=== PATIENT | female | born 1980 | race American Indian/Alaskan Native ===

== ENCOUNTER 2019-11-16 21:23 | Observation (INO) | payer OTHER ==
--- NOTE | 2019-11-16 22:37 | Emergency Department Report ---
Blank Doc - Documentation Documentation: 39-year-old female that presents with dizziness, weakness, and bilateral leg w eakness. This initial assessment/diagnostic orders/clinical plan/treatment(s) is/are subject to change based on patient's health status, clinical progression and re- assessment by fellow clinical providers in the ED. Further treatment and workup at subsequent clinical providers discretion. Patient/guardians urged not to elope from the ED as their condition may be serious if not clinically assessed and managed. Initial orders include: 1- Patient sent to [facility] for further evaluation and treatment 2- labs 3- EKG
[2019-11-16] MEDS ORDERED: SODIUM CHLORIDE 0.9% 1000 ML 1,000 ML IV ONE (23:20)
--- NOTE | 2019-11-16 23:20 | Emergency Department Report ---
ED Dizziness HPI - General Chief Complaint: Dizziness Stated Complaint: DIZZINESS,WEAKNESS,FALLING Time Seen by Provider: 11/16/19 22:36 Source: patient Mode of arrival: Ambulatory Limitations: No Limitations - History of Present Illness Initial Comments: Patient is a 39-year-old female that presents emergency room with complaints of dizziness, weakness and fallen today. Patient states that her gait is worsening. Patient states that she usually does not fall but today she is having so much left leg weakness that she is falling. Patient states her only past medical history of lupus and peripheral neuropathy. Patient states her dizziness and weakness are worse with movement and walking and her dizziness and weakness are better with rest and lying flat. Patient states she is currently on her cycle. Patient states she is having generalized pain which is consistent with her lupus pain in is a 10 out of 10. MD Complaint: dizziness, lightheadedness, difficulty walking -: Sudden Timing: sudden onset Description: "room spinning", lightheadedness, off-balance, difficulty walking History of Same: No History of Trauma: No Severity: severe Improves With: rest Worsens With: movement, position, exertion Associated Symptoms: weakness. denies: chest pain, confusion, cough, diaphoresis, fever/chills, loss of appetite, malaise, rash, seizure, shortness of breath, syncope - Related Data Previous Rx's Medication Instructions Recorded Last Taken Type Permethrin 5% [Acticin 5% CREAM] 1 applicatio TP ONCE #1 tube 07/26/14 Unknown Rx Allergies Allergy/AdvReac Type Severity Reaction Status Date / Time Penicillins Allergy Hives Verified 04/29/14 22:06 ED Review of Systems ROS: Stated complaint: DIZZINESS,WEAKNESS,FALLING Other details as noted in HPI Constitutional: weakness. denies: chills, fever Eyes: denies: eye pain, eye discharge, vision change ENT: denies: ear pain, throat pain Respiratory: denies: cough, shortness of breath, wheezing Cardiovascular: denies: chest pain, palpitations Endocrine: no symptoms reported Gastrointestinal: denies: abdominal pain, nausea, diarrhea Genitourinary: denies: urgency, dysuria, discharge Musculoskeletal: denies: back pain, joint swelling, arthralgia Skin: denies: rash, lesions Neurological: weakness, abnormal gait. denies: headache, paresthesias Psychiatric: denies: anxiety, depression Hematological/Lymphatic: denies: easy bleeding, easy bruising ED Past Medical Hx - Past Medical History Previous Medical History?: Yes Hx Hypertension: No Hx CVA: No Additional medical history: LUPUS - Surgical History Past Surgical History?: Yes Additional Surgical History: c section - Family History Family history: no significant - Social History Smoking Status: Current Every Day Smoker Substance Use Type: None - Medications Home Medications: Home Medications Medication Instructions Recorded Confirmed Last Taken Type Permethrin 5% [Acticin 5% CREAM] 1 applicatio TP ONCE #1 tube 07/26/14 Unknown Rx ED Physical Exam - General Limitations: No Limitations General appearance: alert, in no apparent distress - Head Head exam: Present: atraumatic, normocephalic - Eye Eye exam: Present: normal appearance - ENT ENT exam: Present: mucous membranes moist - Neck Neck exam: Present: normal inspection - Respiratory Respiratory exam: Present: normal lung sounds bilaterally. Absent: respiratory distress, wheezes, rales - Cardiovascular Cardiovascular Exam: Present: regular rate, normal rhythm. Absent: systolic murmur, diastolic murmur, rubs, gallop - GI/Abdominal GI/Abdominal exam: Present: soft, normal bowel sounds - Extremities Exam Extremities exam: Present: normal inspection - Back Exam Back exam: Present: normal inspection - Neurological Exam Neurological exam: Present: alert, oriented X3, CN II-XII intact, abnormal gait (patient has a left foot drop with ambulation) - Psychiatric Psychiatric exam: Present: normal affect, normal mood - Skin Skin exam: Present: warm, dry, intact, normal color. Absent: rash ED Course Vital Signs 11/16/19 11/17/19 11/17/19 21:25 01:20 03:05 Temperature 98.1 F Pulse Rate 75 Respiratory 18 Rate Blood Pressure 122/87 134/87 O2 Sat by Pulse 99 100 100 Oximetry 11/17/19 11/17/19 03:15 03:25 Temperature Pulse Rate 64 Respiratory 18 Rate Blood Pressure 135/82 O2 Sat by Pulse 100 Oximetry - Reevaluation(s) Reevaluation #1: I discussed all results with patient. I discussed plan of care with patient. Patient agrees with plan of care and admission. Patient will be admitted to the hospitalist service. 11/17/19 03:27 - Consultations Consultation #1: Hospitalist consult for admission. Hospitalist admit patient. 11/17/19 03:27 ED Medical Decision Making - Lab Data Result diagrams: 11/16/19 23:04 11/16/19 23:04 - EKG Data -: EKG Interpreted by Me EKG shows normal: sinus rhythm, axis, intervals, QRS complexes, ST-T waves Rate: normal - Radiology Data Radiology results: report reviewed Head CT without intravenous contrast INDICATION: Weakness and dizziness starting today COMPARISON: None FINDINGS: The ventricles are normal in size and position. No hemorrhage or extra-axial fluid collection. No edema or mass effect. No focal infarct seen. Portions of the sinuses visualized are clear. No skull fracture identified. There is periventricular white matter low- attenuation involving the occipital lobes which is somewhat unusual for patient of this young age and demyelinating process would need to be considered. IMPRESSION: Periventricular white matter low-attenuation. No acute abnormality. Automated exposure control was utilized to diminish radiation dose CT lumbar spine with contrast INDICATION: Left leg weakness and foot drop today FINDINGS: The vertebral body heights and disc spaces are intact. There is no fracture or spondylolisthesis. No spurring or facet arthropathy. There is no epidural abscess or fluid collection. There is no focal disc herniation or central spinal stenosis. No bone lesion identified. No foraminal stenosis seen. Polycystic kidneys are present. IMPRESSION: No significant abnormality of the lumbar spine seen. Polycystic kidneys are noted. All CT scans at this location are performed using CT dose reduction for ALARA by means of automated exposure control - Medical Decision Making Patient is a 39-year-old female up since emergency room with complaints of left leg weakness and frequent falls and dizziness. I ambulated the patient in the ER and the patient's gait is consistent with a left foot drop. Patient's labs unremarkable except for a UTI on UA. Patient had a head CT which was negative for acute findings. Patient's lumbar CT done and is negative for acute findings. Patient admitted to the hospitalist service for further violation treatment and a neurologic workup and neurology consult. - Differential Diagnosis left leg weakness, left foot weakness, dizziness, Critical Care Time: Yes Critical care time in (mins) excluding proc time.: 35 Critical care attestation.: If time is entered above; I have spent that time in minutes in the direct care of this critically ill patient, excluding procedure time. Critical Care Time: 35 minutes ED Disposition Clinical Impression: Foot drop, left, Weakness, Falls frequently, Dizziness, Weakness of left leg UTI (urinary tract infection) Qualifiers: Urinary tract infection type: acute cystitis Hematuria presence: with hematuria Qualified Code(s): N30.01 - Acute cystitis with hematuria Disposition: OP ADMIT IP TO THIS HOSP Is pt being admited?: Yes Does the pt Need Aspirin: No Condition: Critical Referrals: PRIMARY CARE, [Primary Care Provider] - 3-5 Days Time of Disposition: 03:28 - Assessment Assessment Interval: Baseline - Level of Consciousness 1a. Level of Consciousness: alert/keenly responsive - LOC Questions 1b. LOC Questions: answers both correctly - LOC Command 1c. LOC Commands: performs tasks correctly - Best Gaze 2. Best Gaze: normal - Visual 3. Visual: no visual loss - Facial Palsy 4. Facial Palsy: normal symmetrical movement - Motor Arm 5a. Motor Arm Left: no drift 5b. Motor Arm Right: no drift - Motor Leg 6a. Motor Leg Left: no drift 6b. Motor Leg Right: no drift - Limb Ataxia 7. Limb Ataxia: absent - Sensory 8. Sensory: normal - Best Language 9. Best Language: no aphasia - Dysarthria 10. Dysarthria: normal - Extinction and Inattention 11. Extinction/Inattention: no abnormality - Scoring Total Score: 0 Stroke Severity: No Stroke Symptoms
[2019-11-16 23:40] LABS: Hematocrit 31.5 % (30.3-42.9); Hemoglobin 10.3 gm/dl (10.1-14.3); Mean Corpuscular HGB Conc 33 % (30-34); Mean Corpuscular Volume 84 fl (79-97); Platelet Count 212 K/mm3 (140-440); Red Blood Count 3.77 M/mm3 (3.65-5.03); Red Cell Distribution Width 16.1 % (13.2-15.2)
[2019-11-17 00:04] LABS: Alanine Aminotransferase 8 units/L (7-56); Albumin 4.1 g/dL (3.9-5); BUN/Creatinine Ratio 19; Blood Urea Nitrogen 13 mg/dL (7-17); Calcium 9.3 mg/dL (8.4-10.2); Hemolysis Index 0
--- NOTE | 2019-11-17 02:11 | Cat Scan Report ---
Head CT without intravenous contrast INDICATION: Weakness and dizziness starting today COMPARISON: None FINDINGS: The ventricles are normal in size and position. No hemorrhage or extra-axial fluid collecti on. No edema or mass effect. No focal infarct seen. Portions of the sinuses visualized are clear. No skull fracture identified. There is periventricular white matter low-attenuation involving the occipi jackie lobes which is somewhat unusual for patient of this young age and demyelinating process would nee d to be considered. IMPRESSION: Periventricular white matter low-attenuation. No acute abnormality. Automated exposure control was utilized to diminish radiation dose Signer Name: Dusty Jay MD Signed: 11/17/2019 2:07 AM Workstation Name: [id number]
--- NOTE | 2019-11-17 02:18 | Cat Scan Report ---
CT lumbar spine with contrast INDICATION: Left leg weakness and foot drop today FINDINGS: The vertebral body heights and disc spaces are intact. There is no fracture or spondylolist hesis. No spurring or facet arthropathy. There is no epidural abscess or fluid collection. There is n o focal disc herniation or central spinal stenosis. No bone lesion identified. No foraminal stenosis seen. Polycystic kidneys are present. IMPRESSION: No significant abnormality of the lumbar spine seen. Polycystic kidneys are noted. All CT scans at this location are performed using CT dose reduction for ALARA by means of automated e xposure control Signer Name: Dusty Jay MD Signed: 11/17/2019 2:14 AM Workstation Name: [id number]
[2019-11-17 02:31] LABS: Anisocytosis 1+; Total Cells Counted 100
[2019-11-17 02:32] LABS: Platelet Estimate Consistent w Auto; Tear Drop Cells Rare
[2019-11-17] MEDS ORDERED: ONDANSETRON 4 MG/2 ML INJ IV PRN (03:51)
[2019-11-17 04:11] LABS: Bilirubin,Urine NEG (Negative); Blood,Urine MOD (Negative); Color,Urine Red (Yellow); Urobilinogen,Urine < 2.0 mg/dL (<2.0)
[2019-11-17 04:13] LABS: RBC,Urine > 182.0 /HPF (0.0-6.0); WBC,Urine > 182.0 /HPF (0.0-6.0)
[2019-11-17] MEDS ORDERED: predniSONE 20 MG TAB PO ONE (04:14)
--- NOTE | 2019-11-17 04:20 | History and Physical Report ---
<ENRIQUE VINCENT - Last Filed: 11/17/19 04:15> History of Present Illness Date of examination: 11/17/19 Date of admission: 11/17/2019 Chief complaint: Dizziness, weakness, recent fall History of present illness: 39-year-old -Gambian female with history of lupus and left leg weakness who presents to [facility] ED with complaints of dizziness, fall and weakness for the past day. Patient states that she was unable to perform ADLs on (11/16) morning because she felt extremely weak and dizzy. When she attempted to ambulate her legs got weak and "gave out". Pt experienced fall x2. She denies head injury/trauma. She states that he gate is worsening and she doesn't know why. Pt states that she has been taking Prednisone 5mg days to help with Lupus for several years. She recently ran out of med approx 2 weeks ago. Pt sees a ui ux web developer at [facility]. She has not been in to see her ui ux web developer for prescription refill. Denies n/v, fever, headache or recent sick contact. Past History Past Medical History: other (Lupus) Past Surgical History: Social history: smoking (Current everyday smoker) Family history: no significant family history Medications and Allergies Allergies Allergy/AdvReac Type Severity Reaction Status Date / Time Penicillins Allergy Hives Verified 04/29/14 22:06 Home Medications Medication Instructions Recorded Confirmed Last Taken Type Permethrin 5% [Acticin 5% CREAM] 1 applicatio TP ONCE #1 tube 07/26/14 Unknown Rx Active Meds: Active Medications Acetaminophen (Tylenol) 650 mg PO Q4H PRN PRN Reason: Pain MILD(1-3)/Fever >100.5/CARLSON Docusate Sodium (Colace) 100 mg PO BID MOSES Heparin Sodium (Porcine) (Heparin) 5,000 unit SUB-Q Q12HR MOSES Ondansetron HCl (Zofran) 4 mg IV Q8H PRN PRN Reason: Nausea And Vomiting Prednisone (Deltasone) 60 mg PO ONCE ONE Stop: 11/17/19 04:15 Prednisone (Deltasone) 5 mg PO QDAY MOSES Sodium Chloride (Sodium Chloride Flush Syringe 10 Ml) 10 ml IV BID MOSES Sodium Chloride (Sodium Chloride Flush Syringe 10 Ml) 10 ml IV PRN PRN PRN Reason: LINE FLUSH Review of Systems All systems: negative Constitutional: weakness Musculoskeletal: frequent falls (over the past day) Neurological: balance difficulties, other (dizziness) Exam - Physical Exam Narrative exam: Physical exam General appearance: Present: No acute distress, alert and oriented 3, pleasant, well-nourished, adult -Gambian female - EENT Eyes: Present: PERRL, EOM intact ENT: hearing intact, normal dentition - Neck Neck: Present: supple, normal ROM - Respiratory Respiratory effort: Non-labored Respiratory: Clear throughout - Cardiovascular Heart rate:64 (bpm) Rhythm: Sinus rhythm Heart Sounds: Present: S1 & S2. Absent: rub, click - Extremities Extremities: no ischemia, pulses intact, - Peripheral Assessment Peripheral Pulses: within normal limits - Abdominal General gastrointestinal: soft, non-tender, normal bowel sounds - Integumentary Integumentary: Present: warm, dry - Musculoskeletal Musculoskeletal: Able to move all extremities, ambulates with cane, unsteady gait, left leg weakness -Neurological Neurological: CN II-XII intact - Psychiatric Psychiatric: Appropriate for situation ,cooperative - Constitutional Vitals: Temp Pulse Resp BP Pulse Ox 98.1 F 64 18 135/82 100 11/16/19 21:25 11/17/19 03:25 11/17/19 03:25 11/17/19 03:15 11/17/19 03:15 Results - Labs CBC & Chem 7: 11/16/19 23:04 11/16/19 23:04 Labs: Laboratory Last Values WBC 2.1 K/mm3 (4.5-11.0) L 11/16/19 23:04 RBC 3.77 M/mm3 (3.65-5.03) 11/16/19 23:04 Hgb 10.3 gm/dl (10.1-14.3) 11/16/19 23:04 Hct 31.5 % (30.3-42.9) 11/16/19 23:04 MCV 84 fl (79-97) 11/16/19 23:04 MCH 27 pg (28-32) L 11/16/19 23:04 MCHC 33 % (30-34) 11/16/19 23:04 RDW 16.1 % (13.2-15.2) H 11/16/19 23:04 Plt Count 212 K/mm3 (140-440) 11/16/19 23:04 Add Manual Diff Complete 11/16/19 23:04 Total Counted 100 11/16/19 23:04 Seg Neuts % (Manual) 44.0 % (40.0-70.0) 11/16/19 23:04 Band Neutrophils % 0 % 11/16/19 23:04 Lymphocytes % (Manual) 40.0 % (13.4-35.0) H 11/16/19 23:04 Reactive Lymphs % (Man) 0 % 11/16/19 23:04 Monocytes % (Manual) 12.0 % (0.0-7.3) H 11/16/19 23:04 Eosinophils % (Manual) 2.0 % (0.0-4.3) 11/16/19 23:04 Basophils % (Manual) 2.0 % (0.0-1.8) H 11/16/19 23:04 Metamyelocytes % 0 % 11/16/19 23:04 Myelocytes % 0 % 11/16/19 23:04 Promyelocytes % 0 % 11/16/19 23:04 Blast Cells % 0 % 11/16/19 23:04 Nucleated RBC % Not Reportable 11/16/19 23:04 Seg Neutrophils # Man 0.9 K/mm3 (1.8-7.7) L 11/16/19 23:04 Band Neutrophils # 0.0 K/mm3 11/16/19 23:04 Lymphocytes # (Manual) 0.8 K/mm3 (1.2-5.4) L 11/16/19 23:04 Abs React Lymphs (Man) 0.0 K/mm3 11/16/19 23:04 Monocytes # (Manual) 0.3 K/mm3 (0.0-0.8) 11/16/19 23:04 Eosinophils # (Manual) 0.0 K/mm3 (0.0-0.4) 11/16/19 23:04 Basophils # (Manual) 0.0 K/mm3 (0.0-0.1) 11/16/19 23:04 Metamyelocytes # 0.0 K/mm3 11/16/19 23:04 Myelocytes # 0.0 K/mm3 11/16/19 23:04 Promyelocytes # 0.0 K/mm3 11/16/19 23:04 Blast Cells # 0.0 K/mm3 11/16/19 23:04 WBC Morphology Not Reportable 11/16/19 23:04 Hypersegmented Neuts Not Reportable 11/16/19 23:04 Hyposegmented Neuts Not Reportable 11/16/19 23:04 Hypogranular Neuts Not Reportable 11/16/19 23:04 Smudge Cells Not Reportable 11/16/19 23:04 Toxic Granulation Not Reportable 11/16/19 23:04 Toxic Vacuolation Not Reportable 11/16/19 23:04 Dohle Bodies Not Reportable 11/16/19 23:04 Pelger-Huet Anomaly Not Reportable 11/16/19 23:04 Chiqui Rods Not Reportable 11/16/19 23:04 Platelet Estimate Consistent w auto 11/16/19 23:04 Clumped Platelets Not Reportable 11/16/19 23:04 Plt Clumps, EDTA Not Reportable 11/16/19 23:04 Large Platelets Not Reportable 11/16/19 23:04 Giant Platelets Not Reportable 11/16/19 23:04 Platelet Satelliting Not Reportable 11/16/19 23:04 Plt Morphology Comment Not Reportable 11/16/19 23:04 RBC Morphology Not Reportable 11/16/19 23:04 Dimorphic RBCs Not Reportable 11/16/19 23:04 Polychromasia Not Reportable 11/16/19 23:04 Hypochromasia Not Reportable 11/16/19 23:04 Poikilocytosis Not Reportable 11/16/19 23:04 Anisocytosis 1+ 11/16/19 23:04 Microcytosis Not Reportable 11/16/19 23:04 Macrocytosis Not Reportable 11/16/19 23:04 Spherocytes Not Reportable 11/16/19 23:04 Pappenheimer Bodies Not Reportable 11/16/19 23:04 Sickle Cells Not Reportable 11/16/19 23:04 Target Cells Not Reportable 11/16/19 23:04 Tear Drop Cells Rare 11/16/19 23:04 Ovalocytes Not Reportable 11/16/19 23:04 Helmet Cells Not Reportable 11/16/19 23:04 Phillips-Dellwood Bodies Not Reportable 11/16/19 23:04 Living[place] Rings Not Reportable 11/16/19 23:04 Dm Cells Not Reportable 11/16/19 23:04 Bite Cells Not Reportable 11/16/19 23:04 Crenated Cell Not Reportable 11/16/19 23:04 Elliptocytes Few 11/16/19 23:04 Acanthocytes (Spur) Not Reportable 11/16/19 23:04 Rouleaux Not Reportable 11/16/19 23:04 Hemoglobin C Crystals Not Reportable 11/16/19 23:04 Schistocytes Not Reportable 11/16/19 23:04 Malaria parasites Not Reportable 11/16/19 23:04 Thor Bodies Not Reportable 11/16/19 23:04 Hem Pathologist Commnt No 11/16/19 23:04 Sodium 144 mmol/L (137-145) 11/16/19 23:04 Potassium 3.6 mmol/L (3.6-5.0) 11/16/19 23:04 Chloride 108.6 mmol/L (98-107) H 11/16/19 23:04 Carbon Dioxide 25 mmol/L (22-30) 11/16/19 23:04 Anion Gap 14 mmol/L 11/16/19 23:04 BUN 13 mg/dL (7-17) 11/16/19 23:04 Creatinine 0.7 mg/dL (0.7-1.2) 11/16/19 23:04 Estimated GFR > 60 ml/min 11/16/19 23:04 BUN/Creatinine Ratio 19 % 11/16/19 23:04 Glucose 87 mg/dL (65-100) 11/16/19 23:04 Calcium 9.3 mg/dL (8.4-10.2) 11/16/19 23:04 Total Bilirubin 0.20 mg/dL (0.1-1.2) 11/16/19 23:04 AST 17 units/L (5-40) 11/16/19 23:04 ALT 8 units/L (7-56) 11/16/19 23:04 Alkaline Phosphatase 60 units/L (35-129) 11/16/19 23:04 Total Protein 7.7 g/dL (6.3-8.2) 11/16/19 23:04 Albumin 4.1 g/dL (3.9-5) 11/16/19 23:04 Albumin/Globulin Ratio 1.1 % 11/16/19 23:04 HCG, Qual Negative (Negative) 11/16/19 23:04 Urine Color Red (Yellow) 11/17/19 03:46 Urine Turbidity Cloudy (Clear) 11/17/19 03:46 Urine pH 6.0 (5.0-7.0) 11/17/19 03:46 Ur Specific [place] 1.017 (1.003-1.030) 11/17/19 03:46 Urine Protein 100 mg/dl mg/dL (Negative) 11/17/19 03:46 Urine Glucose (UA) Neg mg/dL (Negative) 11/17/19 03:46 Urine Ketones Neg mg/dL (Negative) 11/17/19 03:46 Urine Blood Mod (Negative) 11/17/19 03:46 Urine Nitrite Neg (Negative) 11/17/19 03:46 Urine Bilirubin Neg (Negative) 11/17/19 03:46 Urine Urobilinogen < 2.0 mg/dL (<2.0) 11/17/19 03:46 Ur Leukocyte Esterase Neg (Negative) 11/17/19 03:46 Urine WBC (Auto) > 182.0 /HPF (0.0-6.0) H 11/17/19 03:46 Urine RBC (Auto) > 182.0 /HPF (0.0-6.0) 11/17/19 03:46 U Epithel Cells (Auto) 43.0 /HPF (0-13.0) H 11/17/19 03:46 Urine WBC Clumps 3+ /HPF 11/17/19 03:46 - Imaging and Cardiology Imaging and Cardiology: CT Head: FINDINGS: The ventricles are normal in size and position. No hemorrhage or extra-axial fluid collection. No edema or mass effect. No focal infarct seen. Portions of the sinuses visualized are clear. No skull fracture identified. There is periventricular white matter low-attenuation involving the occipital lobes which is somewhat unusual for patient of this young age and demyelinating process would need to be considered. IMPRESSION: Periventricular white matter low-attenuation. No acute abnormality. CT Lumbar/Spine: FINDINGS: The vertebral body heights and disc spaces are intact. There is no fr acture or spondylolisthesis. No spurring or facet arthropathy. There is no epidural abscess or fluid collection. There is no focal disc herniation or central spinal stenosis. No bone lesion identified. No foraminal stenosis seen. Polycystic kidneys are present. IMPRESSION: No significant abnormality of the lumbar spine seen. Polycystic kidneys are noted. Assessment and Plan Assessment and plan: 39-year-old -[place]ian female with history of lupus and left leg weakness who presents to [facility] ED with complaints of dizziness, falls and weakness for the past day. Dizziness -Hx Lupus and has been on long-term prednisone therapy -C/o dizziness after abruptly discontinuing prednisone -Start Prednisone 60mg daily - Neuro checks -Supportive care -Neurology Consulted Recent Falls -Ct Head and CT Lumbar/ Spine negative -Initiate fall precautions -PT/OT eval pending DVT PPX -On Heparin Advance Directives: No VTE prophylaxis?: Chemical Plan of care discussed with patient/family: Yes <GUALBERTO CARO - Last Filed: 11/17/19 05:07> Medications and Allergies Active Meds: Active Medications Acetaminophen (Tylenol) 650 mg PO Q4H PRN PRN Reason: Pain MILD(1-3)/Fever >100.5/CARLSON Docusate Sodium (Colace) 100 mg PO BID MOSES Heparin Sodium (Porcine) (Heparin) 5,000 unit SUB-Q Q12HR MOSES Ondansetron HCl (Zofran) 4 mg IV Q8H PRN PRN Reason: Nausea And Vomiting Prednisone (Deltasone) 60 mg PO QDAY MOSES Sodium Chloride (Sodium Chloride Flush Syringe 10 Ml) 10 ml IV BID MOSES Sodium Chloride (Sodium Chloride Flush Syringe 10 Ml) 10 ml IV PRN PRN PRN Reason: LINE FLUSH Exam - Constitutional Vitals: Temp Pulse Resp BP Pulse Ox 98.1 F 64 18 135/82 100 11/16/19 21:25 11/17/19 03:25 11/17/19 03:25 11/17/19 03:15 11/17/19 03:15 Results - Labs CBC & Chem 7: 11/16/19 23:04 11/16/19 23:04 Labs: Laboratory Last Values WBC 2.1 K/mm3 (4.5-11.0) L 11/16/19 23:04 RBC 3.77 M/mm3 (3.65-5.03) 11/16/19 23:04 Hgb 10.3 gm/dl (10.1-14.3) 11/16/19 23:04 Hct 31.5 % (30.3-42.9) 11/16/19 23:04 MCV 84 fl (79-97) 11/16/19 23:04 MCH 27 pg (28-32) L 11/16/19 23:04 MCHC 33 % (30-34) 11/16/19 23:04 RDW 16.1 % (13.2-15.2) H 11/16/19 23:04 Plt Count 212 K/mm3 (140-440) 11/16/19 23:04 Add Manual Diff Complete 11/16/19 23:04 Total Counted 100 11/16/19 23:04 Seg Neuts % (Manual) 44.0 % (40.0-70.0) 11/16/19 23:04 Band Neutrophils % 0 % 11/16/19 23:04 Lymphocytes % (Manual) 40.0 % (13.4-35.0) H 11/16/19 23:04 Reactive Lymphs % (Man) 0 % 11/16/19 23:04 Monocytes % (Manual) 12.0 % (0.0-7.3) H 11/16/19 23:04 Eosinophils % (Manual) 2.0 % (0.0-4.3) 11/16/19 23:04 Basophils % (Manual) 2.0 % (0.0-1.8) H 11/16/19 23:04 Metamyelocytes % 0 % 11/16/19 23:04 Myelocytes % 0 % 11/16/19 23:04 Promyelocytes % 0 % 11/16/19 23:04 Blast Cells % 0 % 11/16/19 23:04 Nucleated RBC % Not Reportable 11/16/19 23:04 Seg Neutrophils # Man 0.9 K/mm3 (1.8-7.7) L 11/16/19 23:04 Band Neutrophils # 0.0 K/mm3 11/16/19 23:04 Lymphocytes # (Manual) 0.8 K/mm3 (1.2-5.4) L 11/16/19 23:04 Abs React Lymphs (Man) 0.0 K/mm3 11/16/19 23:04 Monocytes # (Manual) 0.3 K/mm3 (0.0-0.8) 11/16/19 23:04 Eosinophils # (Manual) 0.0 K/mm3 (0.0-0.4) 11/16/19 23:04 Basophils # (Manual) 0.0 K/mm3 (0.0-0.1) 11/16/19 23:04 Metamyelocytes # 0.0 K/mm3 11/16/19 23:04 Myelocytes # 0.0 K/mm3 11/16/19 23:04 Promyelocytes # 0.0 K/mm3 11/16/19 23:04 Blast Cells # 0.0 K/mm3 11/16/19 23:04 WBC Morphology Not Reportable 11/16/19 23:04 Hypersegmented Neuts Not Reportable 11/16/19 23:04 Hyposegmented Neuts Not Reportable 11/16/19 23:04 Hypogranular Neuts Not Reportable 11/16/19 23:04 Smudge Cells Not Reportable 11/16/19 23:04 Toxic Granulation Not Reportable 11/16/19 23:04 Toxic Vacuolation Not Reportable 11/16/19 23:04 Dohle Bodies Not Reportable 11/16/19 23:04 Pelger-Huet Anomaly Not Reportable 11/16/19 23:04 Chiqui Rods Not Reportable 11/16/19 23:04 Platelet Estimate Consistent w auto 11/16/19 23:04 Clumped Platelets Not Reportable 11/16/19 23:04 Plt Clumps, EDTA Not Reportable 11/16/19 23:04 Large Platelets Not Reportable 11/16/19 23:04 Giant Platelets Not Reportable 11/16/19 23:04 Platelet Satelliting Not Reportable 11/16/19 23:04 Plt Morphology Comment Not Reportable 11/16/19 23:04 RBC Morphology Not Reportable 11/16/19 23:04 Dimorphic RBCs Not Reportable 11/16/19 23:04 Polychromasia Not Reportable 11/16/19 23:04 Hypochromasia Not Reportable 11/16/19 23:04 Poikilocytosis Not Reportable 11/16/19 23:04 Anisocytosis 1+ 11/16/19 23:04 Microcytosis Not Reportable 11/16/19 23:04 Macrocytosis Not Reportable 11/16/19 23:04 Spherocytes Not Reportable 11/16/19 23:04 Pappenheimer Bodies Not Reportable 11/16/19 23:04 Sickle Cells Not Reportable 11/16/19 23:04 Target Cells Not Reportable 11/16/19 23:04 Tear Drop Cells Rare 11/16/19 23:04 Ovalocytes Not Reportable 11/16/19 23:04 Helmet Cells Not Reportable 11/16/19 23:04 Phillips-Dellwood Bodies Not Reportable 11/16/19 23:04 Livingston Rings Not Reportable 11/16/19 23:04 Dm Cells Not Reportable 11/16/19 23:04 Bite Cells Not Reportable 11/16/19 23:04 Crenated Cell Not Reportable 11/16/19 23:04 Elliptocytes Few 11/16/19 23:04 Acanthocytes (Spur) Not Reportable 11/16/19 23:04 Rouleaux Not Reportable 11/16/19 23:04 Hemoglobin C Crystals Not Reportable 11/16/19 23:04 Schistocytes Not Reportable 11/16/19 23:04 Malaria parasites Not Reportable 11/16/19 23:04 Thor Bodies Not Reportable 11/16/19 23:04 Hem Pathologist Commnt No 11/16/19 23:04 Sodium 144 mmol/L (137-145) 11/16/19 23:04 Potassium 3.6 mmol/L (3.6-5.0) 11/16/19 23:04 Chloride 108.6 mmol/L (98-107) H 11/16/19 23:04 Carbon Dioxide 25 mmol/L (22-30) 11/16/19 23:04 Anion Gap 14 mmol/L 11/16/19 23:04 BUN 13 mg/dL (7-17) 11/16/19 23:04 Creatinine 0.7 mg/dL (0.7-1.2) 11/16/19 23:04 Estimated GFR > 60 ml/min 11/16/19 23:04 BUN/Creatinine Ratio 19 % 11/16/19 23:04 Glucose 87 mg/dL (65-100) 11/16/19 23:04 Calcium 9.3 mg/dL (8.4-10.2) 11/16/19 23:04 Total Bilirubin 0.20 mg/dL (0.1-1.2) 11/16/19 23:04 AST 17 units/L (5-40) 11/16/19 23:04 ALT 8 units/L (7-56) 11/16/19 23:04 Alkaline Phosphatase 60 units/L (35-129) 11/16/19 23:04 Total Protein 7.7 g/dL (6.3-8.2) 11/16/19 23:04 Albumin 4.1 g/dL (3.9-5) 11/16/19 23:04 Albumin/Globulin Ratio 1.1 % 11/16/19 23:04 HCG, Qual Negative (Negative) 11/16/19 23:04 Urine Color Red (Yellow) 11/17/19 03:46 Urine Turbidity Cloudy (Clear) 11/17/19 03:46 Urine pH 6.0 (5.0-7.0) 11/17/19 03:46 Ur Specific [place] 1.017 (1.003-1.030) 11/17/19 03:46 Urine Protein 100 mg/dl mg/dL (Negative) 11/17/19 03:46 Urine Glucose (UA) Neg mg/dL (Negative) 11/17/19 03:46 Urine Ketones Neg mg/dL (Negative) 11/17/19 03:46 Urine Blood Mod (Negative) 11/17/19 03:46 Urine Nitrite Neg (Negative) 11/17/19 03:46 Urine Bilirubin Neg (Negative) 11/17/19 03:46 Urine Urobilinogen < 2.0 mg/dL (<2.0) 11/17/19 03:46 Ur Leukocyte Esterase Neg (Negative) 11/17/19 03:46 Urine WBC (Auto) > 182.0 /HPF (0.0-6.0) H 11/17/19 03:46 Urine RBC (Auto) > 182.0 /HPF (0.0-6.0) 11/17/19 03:46 U Epithel Cells (Auto) 43.0 /HPF (0-13.0) H 11/17/19 03:46 Urine WBC Clumps 3+ /HPF 11/17/19 03:46 Assessment and Plan Assessment and plan: Patient seen in conjunction with the nurse practitioner. This is a 39-year-old woman history of lupus who abruptly stopped her prednisone because she ran out of it now presents with worsening weakness of her legs, left greater than right, unsteady gait and dizziness. Agree with plan as stated above
[2019-11-17] MEDS ORDERED: HYDROmorphone 1 MG/1 ML INJ IV ONE (04:22)
[2019-11-17] MEDS ORDERED: ACETAMINOPHEN 325 MG TAB ONE (07:50)
[2019-11-17] MEDS: ACETAMINOPHEN 325 MG TAB PO PRN ×3 (08:00→18:59)
[2019-11-17] MEDS ORDERED: HEPARIN 5,000 UNIT/1 ML VIAL SUB-Q SCH (10:00)
[2019-11-17] MEDS ORDERED: DOCUSATE SODIUM 100 MG CAP PO SCH (10:00)
--- NOTE | 2019-11-17 14:18 | Discharge Summary ---
Providers - Providers Date of Admission: 11/17/19 05:34 Date of discharge: 11/17/19 Attending physician: LONG MARTINEZ 11/17/19 03:51 Consult to Physician [CONS] Routine Comment: Consulting Provider: HAILEY GUIDO Physician Instructions: Reason For Exam: dizziness and recent fall 11/17/19 03:53 Occupational Therapy Evaluate and Treat [CONS] Routine Comment: Reason For Exam: neuro deficit Physical Therapy Evaluation and Treat [CONS] Routine Comment: Reason For Exam: neuro deficits Primary care physician: GLUED WOOD TESTER Hospitalization Condition: Critical Pertinent studies: CT Head: FINDINGS: The ventricles are normal in size and position. No hemorrhage or extra-axial fluid collection. No edema or mass effect. No focal infarct seen. Portions of the sinuses visualized are clear. No skull fracture identified. There is periventricular white matter low-attenuation involving the occipital lobes which is somewhat unusual for patient of this young age and demyelinating process would need to be considered. IMPRESSION: Periventricular white matter low-attenuation. No acute abnormality. CT Lumbar/Spine: FINDINGS: The vertebral body heights and disc spaces are intact. There is no fracture or spondylolisthesis. No spurring or facet arthropathy. There is no ep idural abscess or fluid collection. There is no focal disc herniation or central spinal stenosis. No bone lesion identified. No foraminal stenosis seen. Polycystic kidneys are present. IMPRESSION: No significant abnormality of the lumbar spine seen. Polycystic kidneys are noted. Hospital course: Discharge diagnosis and mx: /Dizziness, likely from steroid withdrawal vs BPPV -Hx Lupus and has been on long-term prednisone therapy -C/o dizziness after abruptly discontinuing prednisone -s/p Prednisone 60mg x1, will continue prednisone 5mg po daily her home dose -CT head w/o any acute change but has chronic changes - placed on meclizine as needed Recent Falls with left LE weakness -Ct Head and CT Lumbar/ Spine negative - noted rheumatology visit from [place] and her findings were similar on 05/2019 office visit -Initiated fall precautions -PT/OT consulted, d/c with HH - cont neurontin, outpt f/u at [place] h/o SLE: recommended to be compliant with meds - resumed her azathioprine, HCQ and steroid h/o cocaine abuse, counseled UTI, placed on ciprofloxacin DVT PPX -On Heparin Disposition: [id number]/[place]-06 HOME UNDER [facility] Time spent for discharge: 34 minutes Core Measure Documentation - Palliative Care Palliative Care/ Comfort Measures: Not Applicable - Core Measures Any of the following diagnoses?: none Exam - Constitutional Vitals: Temp Pulse Resp BP Pulse Ox 98.3 F 50 L 18 124/74 100 11/17/19 12:26 11/17/19 12:26 11/17/19 12:26 11/17/19 12:26 11/17/19 12:26 General appearance: Present: no acute distress, well-nourished - EENT Eyes: Present: PERRL ENT: hearing intact, clear oral mucosa - Neck Neck: Present: supple, normal ROM - Respiratory Respiratory effort: normal Respiratory: bilateral: CTA - Cardiovascular Heart Sounds: Present: S1 & S2. Absent: rub, click - Extremities Extremities: pulses symmetrical, No edema Peripheral Pulses: within normal limits - Abdominal General gastrointestinal: Present: soft, non-tender, non-distended, normal bowel sounds - Integumentary Integumentary: Present: clear, warm, dry - Musculoskeletal Musculoskeletal: left sided weakness - Psychiatric Psychiatric: appropriate mood/affect, intact judgment & insight - Neurologic Neurologic: CNII-XII intact Plan Activity: fall precautions Weight Bearing Status: Non-Weight Bearing Diet: regular Durable Medical Equipment Needed Upon Discharge: [employer] Additional Instructions: f/u at [facility] in one week Follow up with: PRIMARY CARE, [Primary Care Provider] - 3-5 Days Prescriptions: Meclizine [Antivert] 25 mg PO TID PRN #14 tablet PRN Reason: Vertigo Ciprofloxacin HCl [Ciprofloxacin TAB] 500 mg PO Q12HR #10 tab predniSONE [Deltasone] 5 mg PO QDAY #30 tablet Gabapentin 100 mg PO Q8HR #30 capsule azaTHIOprine [Imuran] 150 mg PO QDAY #30 tablet Hydroxychloroquine [Plaquenil] 300 mg PO QDAY #90 tablet
[2019-11-17] MEDS ORDERED: HYDROXYCHLOROQUINE 200 MG TAB PO SCH (15:00)
--- NOTE | 2019-11-17 15:34 | Consultation ---
History of Present Illness Consult date: 11/17/19 Reason for Consult: Dizziness Chief complaint: Dizziness, leg weakness History of present illness: Patient is a 39 y/o woman w/ a h/o lupus, chronic LLE weakness. Patient walks with a cane at baseline. Yesterday while at home, patient developed dizziness, which she describes as the room spinning around. This increased when she stood up. She noted that dizziness improved when sitting and laying back down, and worsened with head movements. Patient also noted mild increase in LLE weakness, and states that she fell at home yesterday. Patient was then brought to [facility] for further evaluation. Past History Past Medical History: other (Lupus) Past Surgical History: Social history: smoking (Current everyday smoker) Family history: no significant family history Medications and Allergies Allergies Allergy/AdvReac Type Severity Reaction Status Date / Time Penicillins Allergy Hives Verified 04/29/14 22:06 Home Medications Medication Instructions Recorded Confirmed Last Taken Type Ciprofloxacin HCl [Ciprofloxacin 500 mg PO Q12HR #10 tab 11/17/19 Unknown Rx TAB] Docusate Sodium [Colace CAP] 100 mg PO BID capsule 11/17/19 Unknown Rx Gabapentin 100 mg PO Q8HR #30 capsule 11/17/19 Unknown Rx Hydroxychloroquine [Plaquenil] 300 mg PO QDAY #90 tablet 11/17/19 Unknown Rx Meclizine [Antivert] 25 mg PO TID PRN #14 tablet 11/17/19 Unknown Rx azaTHIOprine [Imuran] 150 mg PO QDAY #30 tablet 11/17/19 Unknown Rx predniSONE [Deltasone] 5 mg PO QDAY #30 tablet 11/17/19 Unknown Rx Active Meds: Active Medications Acetaminophen (Tylenol) 650 mg PO Q4H PRN PRN Reason: Pain MILD(1-3)/Fever >100.5/[facility] Last Admin: 11/17/19 12:26 Dose: 650 mg Documented by: Azathioprine (Imuran) 150 mg PO QDAY [facility] Docusate Sodium (Colace) 100 mg PO BID [facility] Last Admin: 11/17/19 10:26 Dose: 100 mg Documented by: Heparin Sodium (Porcine) (Heparin) 5,000 unit SUB-Q Q12HR [facility] Last Admin: 11/17/19 10:28 Dose: 5,000 unit Documented by: Hydroxychloroquine Sulfate (Plaquenil) 300 mg PO QDAY [facility] Ondansetron HCl (Zofran) 4 mg IV Q8H PRN PRN Reason: Nausea And Vomiting Prednisone (Deltasone) 5 mg PO QDAY [facility] Sodium Chloride (Sodium Chloride Flush Syringe 10 Ml) 10 ml IV BID [facility] Last Admin: 11/17/19 10:28 Dose: 10 ml Documented by: Sodium Chloride (Sodium Chloride Flush Syringe 10 Ml) 10 ml IV PRN PRN PRN Reason: LINE FLUSH Review of Systems All systems: negative Neurological: weakness, vertigo Physical Examination - Vital Signs Vital Signs: Vital Signs Temp Pulse Resp BP Pulse Ox 98.1 F 75 18 122/87 99 11/16/19 21:25 11/16/19 21:25 11/16/19 21:25 11/16/19 21:25 11/16/19 21:25 - Physical Exam Narrative exam: Patient is awake, alert, follows complex commands. No notable dysarthria. No aphasia. PERRL, EOMI, VFF, b/l intact to LT, tongue midline, no facial weakness. 5/5 in RUE/LUE, 5/5 in RLE. LLE: 2/5 proximally in HF, 3/5 in KF/KE, 0/5 in AF /AE. B/l intact to LT. 2+ reflexes throughout. - Constitutional General appearance: comfortable - EENT EENT: Present: ATNC, PERRL, mucous membranes moist, hearing intact, vision intact - Respiratory Respiratory: Present: lungs clear, normal breath sounds - Cardiovascular Cardiovascular: Present: regular rate, normal S1, normal S2 Extremities: Present: no clubbing, cyanosis, no inflammation - Gastrointestinal Gastrointestinal: Present: normoactive bowel sounds, soft, non-tender - Integumentary Integumentary: Present: normal - Musculoskeletal Musculoskeletal: Present: no fluid collection - Psychiatric Psychiatric: Present: mood/affect appropriate Results - Laboratory Findings CBC and BMP: 11/16/19 23:04 11/16/19 23:04 Abnormal Lab Findings: Abnormal Labs 11/16/19 11/16/19 11/17/19 23:04 23:04 03:46 WBC 2.1 L MCH 27 L RDW 16.1 H Lymphocytes % (Manual) 40.0 H Monocytes % (Manual) 12.0 H Basophils % (Manual) 2.0 H Seg Neutrophils # Man 0.9 L Lymphocytes # (Manual) 0.8 L Chloride 108.6 H Urine WBC (Auto) > 182.0 H U Epithel Cells (Auto) 43.0 H Assessment and Plan Patient is a 39 y/o woman w/ a h/o lupus, chronic LLE weakness, who p/w dizziness and increased LLE weakness. According to the patient's clinical findings, it is likely that she has BPPV, given that vertigo was elicited with freya-hallpike maneuver, and symptoms were consistent with BPPV. Plan: 1. BPPV: - Dobson-hallpike maneuver positive on the left - Guided patient on Vida maneuver - Recommend vestibular occupational therapy - Start patient on meclizine 25mg BID, PRN for vertigo. 2. LLE weakness: - Reviewed patient's outpatient records from [facility] from May 2019, which showed significant change in exam since that time. - Patient is to have EMG/NCS, per [facility] note. Note also mentioned that patient has had MRI of Brain, as well as C/T/L spine in the past, which w ere not indicative of any cord compression or significant abnormality. - As no significant change noted in exam from [facility] note, would not recommend further imaging at this time. - Recommend PT/OT - Recommend for patient to follow up with neurology in 2-3 weeks, as well as rheumatology. - Will sign off as I will not covering neurology service over the weekend. Recommend for neurologist covering service over the weekend to be consulted for further neurologic monitoring and management. Thank you for allowing me to take part in the care of this patient. Francesco Vargas MD Neurology
[2019-11-17] MEDS ORDERED: azaTHIOprine 50 MG TAB PO SCH (16:00)
[2019-11-17 20:56] VITALS: BP 125/86
[2019-11-18] MEDS ORDERED: predniSONE 20 MG TAB PO SCH (10:00)
[2019-11-18] MEDS ORDERED: predniSONE 5 MG TAB PO SCH ×2 (10:00)
== END 2019-11-18 01:15 | disposition home health service (06) ==
LOC: ED 21:23 → 4A 11-17 05:34 → INTOOBSV 11-17 05:34
PROVIDERS: ADMIT Internal Medicine; ATTEND Internal Medicine
DX: R42 Dizziness and giddiness (principal); M32.9 Systemic lupus erythematosus, unspecified; F17.200 Nicotine dependence, unspecified, uncomplicated; N39.0 Urinary tract infection, site not specified; Z98.891 History of uterine scar from previous surgery
CPT/HCPCS: 36415; 70450; 72132; 80053; 81001; 84703; 85007; 85025; 93005; 93010; 96361; 96372; 96374; 97161; 97166; 97530; 99291; 99406; G0378; J1170; J1644; J7030; J7512; Q9967; J7500

== ENCOUNTER 2022-04-28 08:23 | Emergency (ER) | payer MEDICARE ==
--- NOTE | 2022-04-28 09:07 | Event Note ---
ED Screening Note ED Screening Note: Patient states that she has lupus. She was in the area and had acute onset dizziness. Therefore, she did not go to [place] which is her normal caregiver. She comes to the emergency room with dizziness. On exam her head is in her hand. She also reports generalized pain from her lupus that is making her de pressed. She denies SI or HI. This initial assessment/diagnostic orders/clinical plan/treatment(s) is/are subject to change based on patients health status, clinical progression and re- assessment by fellow clinical providers in the ED. Further treatment and workup at subsequent clinical providers discretion. Patient/guardian urged not to elope from the ED as their condition may be serious if not clinically assessed and managed. Initial orders include: MSE orders for dizziness have been placed.
[2022-04-28 10:06] LABS: Hematocrit 41.6 % (30.3-42.9); Hemoglobin 13.6 gm/dl (10.1-14.3); Mean Corpuscular HGB Conc 33 % (30-34); Mean Corpuscular Volume 94 fl (79-97); Platelet Count 169 K/mm3 (140-440); Red Blood Count 4.45 M/mm3 (3.65-5.03); Red Cell Distribution Width 12.8 % (13.2-15.2)
[2022-04-28 10:29] LABS: Alanine Aminotransferase 14 units/L (7-56); Albumin 4.5 g/dL (3.9-5); BUN/Creatinine Ratio 15; Blood Urea Nitrogen 12 mg/dL (7-17); Calcium 9.6 mg/dL (8.4-10.2); Hemolysis Index 18
--- NOTE | 2022-04-28 10:46 | Electrocardiograph Report ---
[facility] Test Date: 2022-04-28 Test Time: 08:50:39 Pat Name: SHERLYN BETANCUR Department: Room: Gender: F International Guest Coordinator: TRAN YAOB: 1980 Requested By: ED DOC Order Number: [id number] Reading MD: Kiran Chapman Measurements Intervals [place] Rate: 86 P: 64 [place]: 149 QRS: 37 QRSD: 71 T: 27 QT: 341 QTc: 404 Interpretive Statements Sinus rhythm Atrial premature complexes Probable left atrial enlargement nonspecific st-t No previous ECG available for comparison Electronically Signed On 04-28-2022 10:45:59 EDT by Kiran Chapman
[2022-04-28] MEDS ORDERED: oxyCODONE /ACETAMINOPHEN 5-325MG TAB PO ONE (11:30)
--- NOTE | 2022-04-28 11:31 | Emergency Department Report ---
ED General Adult HPI - General Chief complaint: Dizziness Stated complaint: DIZZINESS/LIGHTHEADDED Time Seen by Provider: 04/28/22 11:25 Source: patient Mode of arrival: Ambulatory Limitations: No Limitations - Related Data Previous Rx's Medication Instructions Recorded Last Taken Type Docusate Sodium [Colace CAP] 100 mg PO BID capsule 11/17/19 Unknown Rx Gabapentin 100 mg PO Q8HR #30 capsule 11/17/19 Unknown Rx Hydroxychloroquine [Plaquenil] 300 mg PO QDAY #90 tablet 11/17/19 Unknown Rx azaTHIOprine [Imuran] 150 mg PO QDAY #30 tablet 11/17/19 Unknown Rx predniSONE [Deltasone] 5 mg PO QDAY #30 tablet 11/17/19 Unknown Rx Meclizine [Antivert] 25 mg PO TID PRN #14 tablet 04/28/22 Unknown Rx Sulfamethoxazole/Trimethoprim 1 each PO BID #10 tablet 04/28/22 Unknown Rx [Bactrim DS TAB] Allergies Allergy/AdvReac Type Severity Reaction Status Date / Time Penicillins Allergy Hives Verified 04/29/14 22:06 ED Review of Systems ROS: Stated complaint: DIZZINESS/LIGHTHEADDED Other details as noted in HPI Comment: All other systems reviewed and negative ED Past Medical Hx - Past Medical History Previous Medical History?: Yes Hx Hypertension: Yes Hx CVA: No Additional medical history: LUPUS - Surgical History Past Surgical History?: Yes Additional Surgical History: c section, hysterectomy - Family History Family history: no significant - Social History Smoking Status: Never Smoker Substance Use Type: None - Medications Home Medications: Home Medications Medication Instructions Recorded Confirmed Last Taken Type Docusate Sodium [Colace CAP] 100 mg PO BID capsule 11/17/19 Unknown Rx Gabapentin 100 mg PO Q8HR #30 capsule 11/17/19 Unknown Rx Hydroxychloroquine [Plaquenil] 300 mg PO QDAY #90 tablet 11/17/19 Unknown Rx azaTHIOprine [Imuran] 150 mg PO QDAY #30 tablet 11/17/19 Unknown Rx predniSONE [Deltasone] 5 mg PO QDAY #30 tablet 11/17/19 Unknown Rx Meclizine [Antivert] 25 mg PO TID PRN #14 tablet 04/28/22 Unknown Rx Sulfamethoxazole/Trimethoprim 1 each PO BID #10 tablet 04/28/22 Unknown Rx [Bactrim DS TAB] ED Physical Exam - General Limitations: No Limitations General appearance: alert, in no apparent distress - Head Head exam: Present: atraumatic, normocephalic - Eye Eye exam: Present: normal appearance - ENT ENT exam: Present: mucous membranes moist - Neck Neck exam: Present: normal inspection - Respiratory Respiratory exam: Present: normal lung sounds bilaterally. Absent: respiratory distress - Cardiovascular Cardiovascular Exam: Present: regular rate, normal rhythm. Absent: systolic murmur, diastolic murmur, rubs, gallop - GI/Abdominal GI/Abdominal exam: Present: soft, normal bowel sounds - Extremities Exam Extremities exam: Present: normal inspection - Back Exam Back exam: Present: normal inspection - Neurological Exam Neurological exam: Present: alert, oriented X3 - Psychiatric Psychiatric exam: Present: normal affect, normal mood - Skin Skin exam: Present: warm, dry, intact, normal color. Absent: rash ED Course Vital Signs 04/28/22 04/28/22 11:49 11:58 Respiratory 14 18 Rate O2 Sat by Pulse 98 Oximetry ED Medical Decision Making - Lab Data Result diagrams: 04/28/22 09:47 04/28/22 09:47 - Medical Decision Making Lab Results 04/28/22 04/28/22 04/28/22 Range/Units 09:47 09:47 Unknown WBC 2.1 L (4.5-11.0) K/mm3 RBC 4.45 (3.65-5.03) M/mm3 Hgb 13.6 (10.1-14.3) gm/dl Hct 41.6 (30.3-42.9) % MCV 94 (79-97) fl MCH 31 (28-32) pg MCHC 33 (30-34) % RDW 12.8 L (13.2-15.2) % Plt Count 169 (140-440) K/mm3 Sodium 141 (137-145) mmol/L Potassium 4.1 (3.6-5.0) mmol/L Chloride 108.5 H (98-107) mmol/L Carbon Dioxide 21 L (22-30) mmol/L Anion Gap 16 mmol/L BUN 12 (7-17) mg/dL Creatinine 0.8 (0.6-1.2) mg/dL Estimated GFR > 60 ml/min BUN/Creatinine Ratio 15 % Glucose 93 (65-100) mg/dL Calcium 9.6 (8.4-10.2) mg/dL Total Bilirubin 0.20 (0.1-1.2) mg/dL AST 23 (5-40) units/L ALT 14 (7-56) units/L Alkaline Phosphatase 57 (35-129) units/L C-Reactive Protein 0.30 (0.00-1.30) mg/dL Total Protein 8.0 (6.3-8.2) g/dL Albumin 4.5 (3.9-5) g/dL Albumin/Globulin Ratio 1.3 % Urine Color Yellow (Yellow) Urine Turbidity Slightly-cloudy (Clear) Urine pH 6.0 (5.0-7.0) Ur Specific [place] 1.018 (1.003-1.030) Urine Protein 30 mg/dl (Negative) mg/dL Urine Glucose (UA) Neg (Negative) mg/dL Urine Ketones 20 (Negative) mg/dL Urine Blood Neg (Negative) Urine Nitrite Neg (Negative) Urine Bilirubin Neg (Negative) Urine Urobilinogen < 2.0 (<2.0) mg/dL Ur Leukocyte Esterase Lg (Negative) Urine WBC (Auto) 62.0 H (0.0-6.0) /HPF Urine RBC (Auto) 6.0 (0.0-6.0) /HPF U Epithel Cells (Auto) 73.0 H (0-13.0) /HPF Urine Bacteria (Auto) 3+ (Negative) /HPF Urine WBC Clumps 2+ /HPF Urine Mucus 3+ /HPF Vital Signs 04/28/22 04/28/22 11:49 11:58 Respiratory 14 18 Rate O2 Sat by Pulse 98 Oximetry Critical care attestation.: If time is entered above; I have spent that time in minutes in the direct care of this critically ill patient, excluding procedure time. ED Disposition Clinical Impression: Chronic pain UTI (urinary tract infection) Qualifiers: Urinary tract infection type: site unspecified Disposition: 01 HOME / SELF CARE / HOMELESS Is pt being admited?: No Does the pt Need Aspirin: No Condition: Stable Instructions: Urinary Tract Infection, Adult Additional Instructions: Take medications as ordered today until gone. At the completion of your antibiotics follow-up with your primary care to make sure this is gone away. I have given you referral below. Motrin or Tylenol for pain Diet and activity as tolerated Stay well-hydrated with water Continue home medications Referrals: NICHOLAS BENNETT MD [Staff Physician] - 3-5 Days Time of Disposition: 15:14
[2022-04-28 14:55] LABS: Bacteria,Urine 3+ /HPF (Negative); Bilirubin,Urine NEG (Negative); Blood,Urine NEG (Negative); Color,Urine Yellow (Yellow); Mucus,Urine 3+ /HPF; Urobilinogen,Urine < 2.0 mg/dL (<2.0)
[2022-04-28] MEDS ORDERED: LIDOCAINE-MPF (1%) 10 MG/1 ML VIAL 5 ML INFILTRATI ONE (15:10)
[2022-04-28 15:21] LABS: HCG Qualitative,Urine Negative (Negative)
[2022-04-28 16:21] VITALS: BP 124/74
== END 2022-04-28 15:20 | disposition home or self-care (01) ==
LOC: ED 08:23
DX: G89.29 Other chronic pain (principal); N39.0 Urinary tract infection, site not specified; I10 Essential (primary) hypertension; Z88.0 Allergy status to penicillin
CPT/HCPCS: 36415; 80053; 81001; 81025; 85027; 86140; 87086; 93005; 96372; 99283; J0696; J3490